=== PATIENT | male | born 1965 | race African-American/Black ===

== ENCOUNTER 2016-11-16 05:15 | Emergency (ER) | payer OTHER, MEDICAID ==
[~2016-11-16 05:15] MED LIST: ALBUTEROL17 GM INH; ASACOL400 MG PO; BREO; CEPHALEXIN500 M1 PO; CIPRO500 MG PO; COMPAZINE10 MG PO; FLAGYL500 MG PO; HYDROCODON-ACE1 EA16 PO; IBUPROFEN800 M1 PO; INHALER; LEVAQUIN750 M1 PO; MOTRIN800 MG PO; NORCO 5-325 TA1 EACH PO; NORCO 5/325 TAB1 TAB PO; PERCOCET 5-3251 EACH PO; PHENERGAN12.5 MG PO; PHENERGAN25 MG PO; PREDNISONE20 M1 PO; PREDNISONE50 M1 PO; PROAIR HFA8.5 GM INH; PROMETHAZINE HC25 M3 PO; TYLENOL325 M2 PO; ZITHROMAX250 M1 PO; ZOFRAN ODT4 MG PO
[2016-11-16] MEDS ORDERED: NO HOME MEDICATION XX (05:23)
[2016-11-16] MEDS ORDERED: ZITHROMAX250 M1 PO (06:10)
[2016-11-16] MEDS ORDERED: CHERATUSSIN AC118 M1 PO (06:10)
== END 2016-11-16 06:21 ==
LOC: EDMED 05:15
DX: R05 Cough (principal); J44.9 Chronic obstructive pulmonary disease, unspecified; Z88.0 Allergy status to penicillin; F17.200 Nicotine dependence, unspecified, uncomplicated; Z87.442 Personal history of urinary calculi